=== PATIENT | male | born 1980 | race Caucasian/White ===

== ENCOUNTER 2021-04-25 21:50 | Emergency (ER) | payer OTHER ==
[~2021-04-25] VITALS: Ht 177.8 cm; Wt 72.6 kg
[2021-04-26] MEDS ORDERED: LEVSIN0.125 MG PO (02:11)
[2021-04-26] MEDS ORDERED: INTESTINEX680 M2 PO (02:11)
[2021-04-26] MEDS ORDERED: METRONIDAZOLE500 MG PO (02:11)
[2021-04-26] MEDS ORDERED: PROTONIX20 MG PO (02:11)
[2021-04-26] MEDS ORDERED: PEPCID AC20 MG PO (02:11)
[2021-04-26] MEDS ORDERED: CIPRO500 MG PO (02:11)
== END 2021-04-26 02:16 | disposition home or self-care (01) ==
LOC: ER 21:50
DX: K52.89 Other specified noninfective gastroenteritis and colitis (principal); D72.828 Other elevated white blood cell count; R11.2 Nausea with vomiting, unspecified

== ENCOUNTER 2021-10-07 12:36 | Emergency (ER) | payer OTHER ==
[~2021-10-07] VITALS: Ht 152.4 cm; Wt 72.6 kg
[~2021-10-07 12:36] MED LIST: CIPRO500 MG PO; INTESTINEX680 M2 PO; LEVSIN0.125 MG PO; METRONIDAZOLE500 MG PO; PEPCID AC20 MG PO; PROTONIX20 MG PO
== END 2021-10-07 16:47 | disposition home or self-care (01) ==
LOC: ER 12:36
DX: S92.352A Displaced fracture of fifth metatarsal bone, left foot, initial encounter for closed fracture (principal); X58.XXXA Exposure to other specified factors, initial encounter; Y93.18 Activity, surfing, windsurfing and boogie boarding; Y92.9 Unspecified place or not applicable